=== PATIENT | male | born 1980 | race Caucasian/White ===

== ENCOUNTER 2017-04-18 14:29 | Emergency (ER) | payer BC ==
[2017-04-18] MEDS ORDERED: cefTRIAXone SODIUM 1,000 MG/10 ML VIAL ONE (15:01)
[2017-04-18] MEDS ORDERED: ACETAMINOPHEN 325 MG TABLET PO ONE (15:01)
[2017-04-18] MEDS ORDERED: NORMAL SALINE 100 ML IV ONE (15:01)
[2017-04-18 15:06] LABS: BLOOD UREA NITROGEN 15 mg/dL (9-20); CHLORIDE 99 mmol/L (98-107); EST GLOMERULAR FILTRATION RATE > 60 mL/min; GLUCOSE 89 mg/dL (70-100); MAGNESIUM 1.8 mg/dL (1.6-2.3); POTASSIUM 3.7 mmol/L (3.5-5.1); SODIUM 140 mmol/L (137-145)
--- NOTE | 2017-04-18 15:15 | RADIOLOGY REPORT ---
HISTORY: Difficulty breathing. Fever. COMPARISON: None. FINDINGS: 1 view of the chest obtained. There are low lung volumes. There is no consolidation, pleural effusion , or pneumothorax. Mild diffuse interstitial opacification is noted. Cardiomediastinal silhouette unr emarkable for technique. IMPRESSION: Mild interstitial opacification which could indicate edema or an atypical/viral infectious process. N o focal consolidation, pleural effusion or evidence of pneumothorax, however. Final Electronic Signature: This report was electronically signed by Olu Davis MD on 04/18/2017 3: 13 PM. [email or web address] /
[2017-04-18 15:19] LABS: TROPONIN I < 0.012 ng/mL (0.00-0.034)
[2017-04-18 15:21] LABS: BASOPHILS 0.1 % (0.0-2.0); EOSINOPHILS 1.1 % (0.0-6.0); EOSINOPHILS# 0.2 X 10^3uL (0.0-0.4); HEMATOCRIT 50.3 % (42.0-54.0); LYMPHOCYTES 9.1 % (20.0-40.0); MEAN CELL VOLUME 86.3 fL (80.0-100.0); MEAN CORPUS. HGB CONCENTRATION 33.7 g/dL (32.0-36.0); MEAN CORPUSCULAR HEMOGLOBIN 29.1 pg (29.0-35.0); MONOCYTES 6.8 % (2.0-10.0); MONOCYTES# 1.5 X 10^3uL (0.2-1.0); NEUTROPHILS# 17.8 X 10^3uL (2.6-6.7); PLATELET COUNT 258 X 10^3uL (130-440); RED BLOOD COUNT 5.83 X 10^6uL (4.20-6.10)
[2017-04-18 15:23] LABS: NEUTROPHILS 82.9 % (54.0-75.0); WHITE BLOOD COUNT 21.5 X 10^3uL (3.9-10.7)
--- NOTE | 2017-04-18 16:05 | CT REPORT ---
HISTORY: Chest tightness COMPARISON: None. TECHNIQUE: This examination was performed using automated exposure control, adjustment of mA or kV according to patient size, and/or use of iterative reconstruction technique. Axial CT imaging from the thoracic i nlet through the upper abdomen following administration of IV contrast during peak opacification of t he pulmonary arteries, multiplanar reformatted and 3-D images are evaluated. 100cc Isovue 370 contrast. FINDINGS: There is normal enhancement within the pulmonary arteries. There is no evidence for pulmonary embolis m. The pulmonary arteries are normal in size. The thoracic aorta appears normal. The heart size is normal. No pleural or pericardial effusion. No adenopathy. Upper abdominal structur es appear normal. No pneumothorax. No infiltrate. There is normal alignment to the thoracic spine. IMPRESSION: No evidence for pulmonary embolism. Pulmonary arteries and thoracic aorta appear normal. The lungs are clear. Final Electronic Signature: This report was electronically signed by Rahul Ovalles MD on 04/18/2017 4: 03 PM. [email or web address] /
--- NOTE | 2017-04-18 16:17 | ER NURSING DOCUMENTATION ---
Nurse's Notes [facility] Name:Israel Lemons Age:36 yrs Sex:Male :1980 Arrival Date:04/18/2017 Time:14:29 [facility] MD: Diagnosis:Strep Sore Throat Presentation: 04/18 14:36 Presenting complaint: Patient states: sudden onset of shortness of breath. pt denies bw2 chest pain at this time. Transition of care: patient was not received from another setting of care. AIR CAT ACTIVATION no other not medically required. Asprin Given by EMS 324 mg po. 14:36 Acuity: RAJ 2 bw2 14:36 Method Of Arrival: EMS: 410 bw2 14:38 Acuity: RAJ 2 st Triage Assessment: 14:42 General: Appears in no apparent distress, Behavior is anxious, appropriate for age, bw2 cooperative. Pain: Denies pain. Cardiovascular: Rhythm is sinus tachycardia. Respiratory: No deficits noted. Historical: - Allergies: Erythromycin; - Tetanus: < 10 years. - Ebola Screening: : Patient negative for fever greater than or equal to 101.5 degrees Fahrenheit, and additional compatible Ebola Virus Disease symptoms. Patient denies exposure to infectious person. Patient denies travel to an Ebola-affected area in the 21 days before illness onset. No symptoms or risks identified at this time. . - Immunization history: Flu Vaccine < 1 year. - Social history: Smoking status: Patient states was never smoker of tobacco. Screenin:44 Infectious Disease Risk None. Abuse screen: Denies threats or abuse. Nutritional bw2 screening: No deficits noted. Assessment: 14:43 See Triage Assessment done by same RN. Pain: Denies pain. Cardiovascular: Reports bw2 heaviness. 14:56 Pain: Pain does not radiate. Pain began na. bw2 Vital Signs: 14:43 BP 157 / 91; Pulse 117; Resp 19; Temp 99.5(O); Pulse Ox 96% on R/A; Weight 113.4 kg bw2 (R); Height 6 ft. (182.88 cm); Pain 0/10; 16:06 BP 131 / 89; Pulse 109; Resp 18; Pulse Ox 95% on R/A; bw2 16:16 Temp 99; bw2 14:43 Body Mass Index 33.91 (113.40 kg, 182.88 cm) bw2 ED Course: 14:30 Patient arrived in ED. ama 14:34 Jd Metcalf MD is Attending Physician. be 14:36 Ashly Zapata is Primary Nurse. 2 14:37 EKG attached [facility] [place] 14:[address] 14:44 Valuables Remains with patient Patient has correct armband on for positive bw2 identification. Placed in gown. Side rails up X 1. potline monitor on. Pulse ox on. NIBP on. 14:57 Port Xray Completed. mr 14:57 EKG done. (by ED staff). Inserted peripheral IV: 18 gauge in left. bw2 15:[address] hz 15:[address] moved back from [address]. Administered Medications: 14:54 Drug: NS 0.9% 1000 ml; Route: IV; Rate: bolus; Site: left antecubital; bw2 15:28 Follow up: IV Status: Completed infusion bw2 14:54 Drug: Tylenol 1000 mg; Route: PO; bw2 15:28 Follow up: Response: No adverse reaction bw2 14:54 Drug: Rocephin 1 grams; Route: IVPB; Site: left antecubital; bw2 15:53 Follow up: IV Status: Completed infusion 2 Outcome: 15:19 Discharge ordered by MD. be 16:16 Discharged to home ambulatory, with family. 2 16:16 Condition: good 16:16 Discharge Assessment: Patient awake, alert and oriented x 3. No cognitive and/or functional deficits noted. Patient verbalized understanding of disposition instructions. 16:16 Discharge instructions given to patient, significant other, Instructed on discharge instructions, follow up and referral plans. medication usage, Demonstrated understanding of instructions, medications, Prescriptions given X 2. 16:17 Patient left the ED. 2 0708 10:17 Discharge F/U Call: Unable to reach: no answer st Signatures: Soraida Heredia RN RN st Campbell, Sandy, RN RN tn1 Jd Metcalf MD MD be Averdick, Andrew, Reg Reg Ashly Rutherford bw2 Dominique Cross hz Pola Durham mr
--- NOTE | 2017-04-18 16:17 | ER PHYSICIAN DOCUMENTATION ---
Physician Documentation [facility] Name:Israel Lemons Age:36 yrs Sex:Male :1980 Arrival Date:04/18/2017 Time:14:29 BedCT Private MD: Jd Vides Disposition: 04/18 14:44 Critical Care: not applicable. be Disposition: 04/18/17 15:19 Discharged to Home/Self Care. Impression: Strep Sore Throat. - Condition is Good. - Discharge Instructions: PHARYNGITIS, Strep (Confirmed). - Prescriptions for Amoxicillin 500 mg Oral - take 2 capsule by ORAL route every 8 hours for 10 days; 60 tablet. - Medical Reconciliation form form. - Follow up: Private Physician; When: As needed; Reason: Worsening of condition, Recheck today's complaints. - Problem is new. - Symptoms have improved. HPI: 14:40 This 36 yrs old Male presents to ER via EMS with complaints of Chest be Tightness. 14:40 The patient or guardian reports chest pain that is located primarily in the chest be diffusely. The pain does not radiate. Associated signs and symptoms: Pertinent positives: lightheadedness, shortness of breath, fever. Historical: - Allergies: Erythromycin; - Tetanus: < 10 years. - Ebola Screening: : Patient negative for fever greater than or equal to 101.5 degrees Fahrenheit, and additional compatible Ebola Virus Disease symptoms. Patient denies exposure to infectious person. Patient denies travel to an Ebola-affected area in the 21 days before illness onset. No symptoms or risks identified at this time. . - Immunization history: Flu Vaccine < 1 year. - Social history: Smoking status: Patient states was never smoker of tobacco. ROS: 14:41 Constitutional: Positive for body aches, chills, fatigue, fever, malaise. be 14:41 Cardiovascular: Positive for palpitations, tachycardia. 14:41 All other systems are negative. Exam: 14:41 Constitutional: This is a well developed, well nourished patient who is awake, alert, be and in no acute distress. Head/Face: Normocephalic, atraumatic. Eyes: Pupils equal round and reactive to light, extra-ocular motions intact. Lids and lashes normal. Conjunctiva and sclera are non-icteric and not injected. Cornea within normal limits. Periorbital areas with no swelling, redness, or edema. ENT: Nares patent. No nasal discharge, no septal abnormalities noted. Tympanic membranes are normal and external auditory canals are clear. Oropharynx with no redness, swelling, or masses, exudates, or evidence of obstruction, uvula midline. Mucous membranes moist. Neck: Trachea midline, no thyromegaly or masses palpated, and no cervical lymphadenopathy. Supple, full range of motion without nuchal rigidity, or vertebral point tenderness. No Meningismus. 14:41 Skin: Warm, dry with normal turgor. Normal color with no rashes, no lesions, and no be evidence of cellulitis. 14:41 Cardiovascular: Rate: tachycardic, Rhythm: regular, tachycardia. 14:41 Respiratory: the patient does not display signs of respiratory distress, Respirations: normal, Breath sounds: are normal. Vital Signs: 14:43 BP 157 / 91; Pulse 117; Resp 19; Temp 99.5(O); Pulse Ox 96% on R/A; Weight 113.4 kg bw2 (R); Height 6 ft. (182.88 cm); Pain 0/10; 16:06 BP 131 / 89; Pulse 109; Resp 18; Pulse Ox 95% on R/A; bw2 16:16 Temp 99; bw2 14:43 Body Mass Index 33.91 (113.40 kg, 182.88 cm) bw2 MDM: 14:34 Patient medically screened. be 14:37 EKG attached sc1 14:39 ECG:. be 14:42 Differential diagnosis: acute pericarditis, pneumonia, pulmonary embolus, Strep throat. be Patient took aspirin per EMS prior to arrival. Patient did not receive fibrinolytic due to not indicated. Data reviewed: vital signs, nurses notes, diagnostic data from outside facility, EKG, Positive strep screen in [facility], lab test result(s), EKG, radiologic studies, and as a result, I will discharge patient, administer antibiotics Rocephin, administer IV fluids, NS bolus. Data interpreted: aboriginal liaison officer: rate is 110 beats/min, rhythm is regular, sinus tachycardia. 04/18 15:08 Order name: LACTATE; Complete Time: 15:15 EDMS 04/18 15:12 Interpretation: Normal. be 04/18 15:10 Order name: DDIMER; Complete Time: 16:04 EDMS 04/18 15:13 Interpretation: Normal Except: minimally elevated, but likely inflammatory response be from strep throat. 04/18 15:19 Order name: BASIC METABOLIC PANEL; Complete Time: 16:04 EDMS 04/18 16:00 Interpretation: Normal. be 04/18 15:19 Order name: MAGNESIUM; Complete Time: 16:04 EDMS 04/18 16:00 Interpretation: Normal. be 04/18 15:19 Order name: TROPONIN I; Complete Time: 16:04 EDMS 04/18 16:00 Interpretation: Normal. be 04/18 15:24 Order name: CBC AUTO DIF, MDIF/RMOR IF IND; Complete Time: 16:04 EDMS 04/18 16:00 Interpretation: Normal Except: Leukocytosis with left shift and polycythemia. be 04/18 15:17 Order name: CHEST; SINGLE VIEW [id number]; Complete Time: 16:04 EDMS 04/18 16:07 Order name: CAT SCAN; CHEST ANGIO [id number]; Complete Time: 16:11 EDMS 04/18 16:26 Interpretation: Normal. be 04/18 14:35 Order name: 12-lead EKG; Complete Time: 14:55 be 04/18 14:35 Order name: Iv Saline Lock; Complete Time: 14:55 be 04/18 14:35 Order name: Place Patient On Monitor; Complete Time: 14:55 be 04/18 14:35 Order name: Pulse Ox Continuous; Complete Time: 14:55 be 04/18 14:39 Order name: Oxygen; Complete Time: 14:55 be EC:39 Rate is 116 beats/min. Rhythm is regular, Sinus tachycardia with No ectopy. QRS [place] is be Normal. GA interval is normal. QRS interval is normal. QT interval is normal. No Q waves. T waves are Normal. No ST changes noted. Clinical impression: Normal ECG. Interpreted by me. Dispensed Medications: 14:54 Drug: NS 0.9% 1000 ml; Route: IV; Rate: bolus; Site: left antecubital; bw2 15:28 Follow up: IV Status: Completed infusion bw2 14:54 Drug: Tylenol 1000 mg; Route: PO; bw2 15:28 Follow up: Response: No adverse reaction bw2 14:54 Drug: Rocephin 1 grams; Route: IVPB; Site: left antecubital; bw2 15:53 Follow up: IV Status: Completed infusion bw2 Signatures: Nubia Meza RN RN sc1 Jd Metcalf MD MD be Wisely, Beth bw2
== END 2017-04-18 16:17 | disposition home or self-care (01) ==
LOC: ER 14:29
DX: J02.0 Streptococcal pharyngitis (principal); R07.89 Other chest pain; D72.829 Elevated white blood cell count, unspecified; D75.1 Secondary polycythemia; R00.0 Tachycardia, unspecified; R50.9 Fever, unspecified; R53.83 Other fatigue; R53.81 Other malaise; Z74.3 Need for continuous supervision
CPT/HCPCS: 36415; 71010; 71275; 80048; 83605; 83735; 84484; 85025; 85379; 93005; 96365; 99285; A0425; A0429; J0696